=== PATIENT | female | born 2000 | race Native Hawaiian/Other Pacific Islander ===

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

== ENCOUNTER 2022-04-18 21:31 | Emergency (ER) | payer OTHER ==
[~2022-04-18] VITALS: Ht 160 cm; Wt 117.0 kg
[2022-04-18 21:35] VITALS: TEMP 98.4
[2022-04-18 22:46] LABS: PLATELET COUNT 226 K/uL (152-353)
[2022-04-18 22:52] LABS: POTASSIUM 3.5 mmol/L (3.6-5.2)
[2022-04-19 01:10] VITALS: BP 127/55
== END 2022-04-19 01:10 | disposition home or self-care (01) ==
LOC: ED 21:31
PROVIDERS: Emergency Medicine Emergency Medical Services
DX: J45.909 Unspecified asthma, uncomplicated (principal); Z20.822 Contact with and (suspected) exposure to COVID-19
CPT/HCPCS: 36415; 36600; 80048; 81025; 82805; 84484; 85027; 85379; 87502; 87635; 87651; 93005; 94664; 96360; 96361; 96365; 99284; J0696; J2930; U0003

== ENCOUNTER 2022-10-16 09:58 | Emergency (ER) | payer OTHER ==
[~2022-10-16] VITALS: Ht 160 cm; Wt 106.1 kg
[2022-10-16 10:06] VITALS: BP 156/61; TEMP 98.4
== END 2022-10-16 13:28 | disposition home or self-care (01) ==
LOC: ED 09:58
DX: S13.4XXA Sprain of ligaments of cervical spine, initial encounter (principal); S29.012A Strain of muscle and tendon of back wall of thorax, initial encounter; V43.62XA Car passenger injured in collision with other type car in traffic accident, initial encounter; Y92.89 Other specified places as the place of occurrence of the external cause
CPT/HCPCS: 81025; 99283